=== PATIENT | female | born 1965 | race Caucasian/White ===

== ENCOUNTER 2017-05-10 06:17 | Day surgery (SDC) | payer OTHER ==
[~2017-05-10 06:17] MED LIST: Buffered Lidocaine 0.9% SYRIN* 5 ML/SYR SYRINGE INTRADERM ONE
[2017-05-10] MEDS ORDERED: ceFOXitin 2 GM IVPREMIX* 2 GM/50 ML BAG ONE (06:44)
[2017-05-10] MEDS ORDERED: Misoprostol TAB* 200 MCG ONE (07:02)
[2017-05-10] MEDS ORDERED: Midazolam* 1 MG/ML 5 ML VIAL (5 MG) ONE (08:01)
[2017-05-10] MEDS ORDERED: fentaNYL* 50 MCG/ML 2 ML VIAL (100 MCG VIAL) ONE (08:01)
[2017-05-10] MEDS ORDERED: Chloroprocaine 2%* 20 ML VIAL ONE (08:08)
[2017-05-10] MEDS ORDERED: Ondansetron INJ* 2 MG/ML VIAL IV PRN (08:59)
[2017-05-10] MEDS ORDERED: Silver Nitrate/Potassium Nitr* 1 EA STICK ONE (09:05)
[2017-05-10 10:51] VITALS: BP 140/83
--- NOTE | 2017-05-11 01:45 | OP ---
DATE OF OPERATION: 05/10/17 [facility] DATE OF : 63 SURGEON: Eli Lopez MD LIFESTYLE BLOCK FARMER: None. ANESTHESIOLOGIST: Dr. Sheridan. ANESTHESIA: Spinal. PRE-OP DIAGNOSES: Postmenopausal bleeding and stenotic cervix. POST-OP DIAGNOSES: Postmenopausal bleeding and stenotic cervix. OPERATIVE PROCEDURE: Dilation, curettage, and hysteroscopy. ESTIMATED BLOOD LOSS: Minimal. DEFICIT: Less than 500 cc. URINE OUTPUT: Less than 200 cc. FLUIDS: 1100 cc of crystalloid. FINDINGS: Revealed a stenotic internal cervical os. Uterine cavity seen, unable to visualize tubal ostia bilaterally, no intrauterine mass was appreciated. COMPLICATIONS: None apparent. DISPOSITION: Stable to recovery room. DESCRIPTION OF PROCEDURE: The patient was placed in dorsal lithotomy position. Legs were placed in [place] Henri stirrups. The perineum and vagina were prepped and draped in the sterile standard fashion. The patient was identified with universal protocol for correct procedure, patient, and position. A straight cath was performed for drainage of clear yellow urine. The straight cath was then removed. Sterile speculum was inserted. Anterior lip of the cervix was grasped with a single-tooth tenaculum. Dilation was then carried out using a combination of Hegar and Fernandes dilators. A hysteroscope was inserted given the stenotic nature and inability to dilate more than 2 cm of the cervix. The hystero-scope revealed a severely anterior stenotic cervical os. A careful dilation was carried out. The hysteroscope was then inserted and the uterine cavity was visualized. However, there were no tubal ostia visualized as the internal os was stenotic, could not advance the scope beyond the internal os. No intrauterine masses were appreciated. Hysteroscope was then removed and then sharp curettage was performed. Single-tooth tenaculum was removed. All sponge, instrument, and blade counts were correct throughout the case. The patient tolerated the procedure well and went to recovery room in stable condition. [id number]/[facility] #: [id number] [facility]
== END 2017-05-10 10:52 | disposition home or self-care (01) ==
LOC: OR 06:17
PROVIDERS: ATTEND Obstetrics & Gynecology
DX: N95.0 Postmenopausal bleeding (principal); N88.2 Stricture and stenosis of cervix uteri; Z87.891 Personal history of nicotine dependence; E03.9 Hypothyroidism, unspecified; R00.2 Palpitations
CPT/HCPCS: 36415; 86850; 86900; 86901; 88305; A9270-GY; J0694; J2250; J2400; J3010

== ENCOUNTER 2018-05-28 06:52 | Day surgery (SDC) | payer BC ==
--- NOTE | 2018-05-16 07:28 | HP ---
HISTORY AND PHYSICAL: DATE OF ADMISSION/SURGERY: 05/28/18 DATE OF VISIT: 05/15/18 SURGEON: Marissa Medina MD * (DICTATED BY RADHA JACKSON) PROCEDURE: Left knee arthroscopy with partial lateral meniscectomy. CHIEF COMPLAINT: Left knee pain. HISTORY OF PRESENT ILLNESS: Ms. Filipe Piper is a 52-year-old female with complaints of left knee pain. She has failed conservative management and an MRI of her left knee shows a lateral and possible medial meniscal tear. She has elected to proceed with surgery, which is scheduled for 05/28/[address] Medina. PAST MEDICAL HISTORY: High cholesterol, lupus, hypothyroidism, depression, anxiety, melanoma, and history of thyroid cancer. PAST SURGICAL HISTORY: Lumbar laminectomy, thyroidectomy, microlaryngoscopy, C - section x2, tubal ligation, melanoma excision, and D and C. CURRENT MEDICATIONS: 1. Synthroid 150 mcg. 2. Vitamin D. 3. Vitamin C. 4. Vitamin B12. 5. Zyrtec as needed. 6. Glucosamine/chondroitin daily. 7. Nasal spray. 8. Probiotic. ALLERGIES: No known drug allergies. FAMILY HISTORY: Heart disease and hypertension. SOCIAL HISTORY: She is a 52-year-old female. She lives with her . She does not smoke or use drugs. Uses alcohol rarely. REVIEW OF SYSTEMS: A complete 14-point review of systems was reviewed with the patient. It was positive for hypothyroidism secondary to a thyroidectomy. PHYSICAL EXAMINATION GENERAL: She is well-developed, well-nourished, in no acute distress. VITAL SIGNS: She stands 69 inches tall, weighs 175 pounds. HEENT: Normocephalic, atraumatic. NECK: Supple. No palpable lymph nodes. PULMONARY: The lungs are clear to auscultation bilaterally. CARDIO: Regular rate and rhythm. Strong S1, S2. ABDOMEN: Soft, nontender, nondistended. NEUROLOGICAL: She is alert and oriented x3. MUSCULOSKELETAL: Left lower extremity, the skin is intact. There are no open wounds or abrasions. There is a moderate joint effusion of the left knee. She has some tenderness over the lateral joint line. Positive Eleonora's. Negative Yair's. 2+ dorsalis pedis pulses, intact sensation, and her lower extremity muscle group strengths are intact at 5/5. ASSESSMENT AND PLAN: Ms. Filipe Piper is a 52-year-old female with complaints of left knee pain. She has failed conservative management and elected to proceed with left knee arthroscopy with partial lateral meniscectomy , possible chondroplasty, possible synovectomy. This surgery is scheduled for 05/28/[address] Medina discussed the risks and benefits of the surgery at today's visit and all of her questions were answered. She will follow up with Dr. Medina 2 weeks after the surgery. RADHA JACKSON [id number]/[facility] #: [id number] [facility]
[~2018-05-28 06:52] MED LIST changes: +Famotidine IV* 10 MG/ML 2 ML (20 mg) IV ONE
[2018-05-28] MEDS ORDERED: Famotidine IV* 10 MG/ML 2 ML (20 mg) ONE (07:02)
[2018-05-28] MEDS ORDERED: Buffered Lidocaine 0.9% SYRIN* 5 ML/SYR SYRINGE ONE (07:02)
[2018-05-28] MEDS ORDERED: ceFAZolin 2 GM PREMIX (*) 2 GM/50 ML BAG IVPB ONE (07:02)
[2018-05-28] MEDS ORDERED: EPINEPHRINE 1 MG/ML 1 ML VIAL ONE (07:11)
[2018-05-28] MEDS ORDERED: methylPREDNISolone ACETATE 80* 80 MG/ML 1 ML VIAL ONE (07:11)
[2018-05-28] MEDS ORDERED: Bupivacaine 0.5% SDV PF* 30ML VIAL ONE (07:11)
[2018-05-28] MEDS ORDERED: Dexamethasone IV* 4 MG/ML 1 ML (4 MG) ONE (07:16)
[2018-05-28] MEDS ORDERED: Ketorolac INJ* 30 MG/ML 1 ML VIAL ONE (07:16)
[2018-05-28] MEDS ORDERED: fentaNYL* 50 MCG/ML 2 ML VIAL (100 MCG VIAL) ONE (07:16)
[2018-05-28] MEDS ORDERED: Midazolam* 1 MG/ML 5 ML VIAL (5 MG) ONE (07:16)
[2018-05-28] MEDS ORDERED: Propofol* 10 MG/ML 20 ML BTL IV PUSH ONE (07:16)
[2018-05-28] MEDS ORDERED: Lidocaine 2% PF * 5 ML VIAL ONE (07:16)
[2018-05-28] MEDS ORDERED: Ondansetron ODT TAB* 4 MG ONE ×2 (07:16→10:52)
[2018-05-28] MEDS ORDERED: DiMENhydriNATE IV* 50 MG/ML VIAL IV PUSH PRN (07:51)
[2018-05-28] MEDS ORDERED: Ondansetron ODT TAB* 4 MG PO PRN (07:51)
[2018-05-28] MEDS ORDERED: Naloxone* 0.4 MG/ML 1 ML VIAL IV PRN (07:51)
[2018-05-28] MEDS ORDERED: fentaNYL* 50 MCG/ML 2 ML VIAL (100 MCG VIAL) IV PRN (07:51)
[2018-05-28] MEDS ORDERED: Chloroprocaine 2%* 20 ML VIAL ONE (08:20)
[2018-05-28] MEDS ORDERED: oxyCODONE/Acetamin 5/325 MG* TAB ONE ×2 (10:52→11:20)
[2018-05-28] MEDS: oxyCODONE/Acetamin 5/325 MG* TAB PO PRN ×2 (10:53→11:22)
[2018-05-28 11:14] VITALS: BP 147/99
--- NOTE | 2018-05-28 22:00 | OP ---
OPERATIVE REPORT: DATE OF OPERATION: 05/28/18 DATE OF : 63 SURGEON: Marissa Medina MD PICTURE HANGER: RADHA Diana Mr. Lacey did help throughout the procedure with preparation of the leg, wound retraction, manipulat ion of the knee and wound closure. ANESTHESIOLOGIST: Dr. Dean ANESTHESIA: Spinal. PRE-OP DIAGNOSIS: Left knee pain with moderate osteoarthritis and lateral meniscal tear. POST-OP DIAGNOSIS: Left knee moderate to severe degenerative osteoarthritis in the patellofemoral co mpartment, linear tear in the body of the lateral meniscus, anterior synovitis. PROCEDURE PERFORMED: Left knee arthroscopy with anterior synovectomy, patellofemoral chondroplasty a nd partial lateral meniscectomy. ESTIMATED BLOOD LOSS: Less than 25 cc. COMPLICATIONS: None. SPECIMEN: None. BRIEF HISTORY/INDICATION: Ms. Filipe Piper is a 52-year-old female with acute on chronic left knee pain. She developed mechanical symptoms and difficulty with twisting, pivoting. She had failed cons ervative treatment with antiinflammatories, physical therapy, use of a brace and chiropractor. An MR I confirmed a tear in her lateral meniscus. She elected to undergo left knee arthroscopy with partia l meniscectomy, possible chondroplasty, possible synovectomy. Informed consent was obtained from the patient. She understood the risks of surgery included but were not limited to bleeding, infection, damage to nearby structures, continued pain, need for further surgery, retear of the meniscus, progre ssion of arthritis, stroke, heart attack, blood clot, and . She wished to proceed. INTRAOPERATIVE FINDINGS: Intraoperatively, the patient was noted to have significant amount of the a nterior synovitis. She had grade 2 and 4 Outerbridge cartilage changes of the medial and lateral pat ellar facet. She had a linear tear which was nearly a bucket handle tear in the majority of the post erior lateral meniscus. This did displace anteriorly into the joint. DESCRIPTION OF PROCEDURE: Ms. Filipe Piper was identified in the preanesthesia unit. Her left lowe r extremity was marked as the correct operative side. Informed consent was signed and placed in the chart. The patient was taken to the operating room and placed under spinal anesthesia. Her left low er extremity was prepped and draped in the usual sterile fashion. Preop time-out was made to correct ly identify the patient's side and site. Appropriate perioperative antibiotics were given within 1 h our of incision. A standard 1.5 cm anterolateral portal incision was made with a 15 blade and carried down through the capsule. Trocar was introduced. As soon as the light and water sources were turned on, there was i mmediate visualization of the suprapatellar pouch. A tour of the knee joint was performed. Patellof emoral compartment showed grade 3 and 4 Outerbridge cartilage changes involving the medial and latera l facet with frayed cartilage. There was also a significant loss of cartilage in the patellofemoral groove. Medial gutters showed no loose body or plica. Medial compartment showed no obvious meniscal tear. No significant degenerative changes. ACL and PCL appeared to be intact, although there was s ignificant anterior synovitis and soft tissue which was inflamed. The knee was placed in a lateral f igure-of-4 position. There was a complex tear involving the lateral meniscus as well as a linear tea r with some anterior displacement of the posterior portion of the meniscus. Lateral compartment had some mild to moderate grade 2 Outerbridge cartilage changes. Lateral gutter showed no loose body or plica. Under direct visualization, a medial portal incision was made with a 15 blade. Probe was introduced a nd a second tour of the knee joint was performed. Shaver and radiofrequency ablation wand were used to perform anterior synovectomy and visualization was much improved. Radiofrequency ablation wand wa s used to smooth any cartilage flaps or frayed edges along the patellar cartilage. This was done in a conservative fashion. Next, probing of the lateral meniscus showed a linear near bucket handle tear involving the posterior 50% of the meniscus. Straight bitter and shaver were used to perform partial lateral meniscectomy. The smooth border of the meniscus was obtained. Radiofrequency ablation wand was used to further sm ooth any edges. Further probing of the lateral meniscus showed no additional tears or displaced fragm ents. The knee was copiously irrigated with sterile saline. Instruments were removed. Incisions we re closed using 3-0 nylon suture. Intraarticular injection of 80 mg of Depo-Medrol and 6 cc of 0.25% Marcaine was placed in the knee joint. Incisions were closed using sterile Xeroform, 4x4s, and Webri l. Dre wrap and cold pack were placed over this. The patient's anesthesia was reversed without diff iculty. She was taken to the PACU in stable condition. Intended weightbearing will be weightbearing as tolerated. Intended DVT prophylaxis will be aspirin. She will follow up in 2 weeks' time for cuellar ture removal. [id number]/[facility] #: [id number]
== END 2018-05-28 11:44 | disposition home or self-care (01) ==
LOC: OR 06:52
PROVIDERS: ATTEND Orthopaedic Surgery Adult Reconstructive Orthopaedic Surgery
DX: M23.201 Derangement of unspecified lateral meniscus due to old tear or injury, left knee (principal); M17.12 Unilateral primary osteoarthritis, left knee; M65.862 Other synovitis and tenosynovitis, left lower leg; E03.9 Hypothyroidism, unspecified; F41.8 Other specified anxiety disorders; Z85.820 Personal history of malignant melanoma of skin; Z85.850 Personal history of malignant neoplasm of thyroid; E78.00 Pure hypercholesterolemia, unspecified; M32.9 Systemic lupus erythematosus, unspecified; R00.2 Palpitations
CPT/HCPCS: A9270-GY; J0690; J1040; J1100; J1885; J2250; J2400; J2704; J3010